=== PATIENT | female | born 1990 ===

== ENCOUNTER 2017-06-24 19:51 | Inpatient (IN) | payer OTHER ==
[2017-06-24 20:30] VITALS: BP 122/69; PULSE 79; TEMP 98
[2017-06-24 21:00] VITALS: BP 122/69; PULSE 79; TEMP 98
[2017-06-24 21:38] LABS: BASO % 0.3 % (0.0-2.0); EOS % 0.2 % (0-4.0); GRAN # 8.8 (1.4-6.5); LYMPH # 1.3 (1.2-3.4); LYMPH % 12.6 % (20.0-51.0); MEAN CELL VOLUME 70 fl (80.0-100.0); MEAN CORPUSCULAR HGB CONC 29 g/dl (33.0-37.0); MONO # 0.4 (0.1-0.6); MONO % 3.3 % (1.7-9.3); PLATELET COUNT 179 K/mm3 (130-400); RED BLOOD COUNT 4.32 M/mm3 (4.10-5.30); REDCELL DISTRIBUTION WIDTH-CV 16.8 % (11.5-14.5)
[2017-06-24 21:41] LABS: HEMATOCRIT 30.3 % (37.0-47.0); HEMOGLOBIN 8.8 g/dl (12.5-16.0); MEAN CORPUSCULAR HEMOGLOBIN 20 pg (27.0-31.0)
[2017-06-24 22:00] VITALS: BP 118/67; PULSE 64
[2017-06-24 22:21] LABS: HIV 1/2 Antibodies Non-Reactive; HIV-1p24 Antigen Non-Reactive
[2017-06-24 22:28] LABS: TRICYCLIC ANTIDEPRESS URINE NEGATIVE
[2017-06-24 22:30] VITALS: BP 124/80; BP 128/85; PULSE 63; PULSE 71
[2017-06-24 22:45] VITALS: BP 120/77; PULSE 74
[2017-06-24 23:30] VITALS: BP 125/78; PULSE 78
[2017-06-25] VITALS (21 sets, daily range): BP systolic 91–1333; BP diastolic 53–77; PULSE 55–90; TEMP 97.8–98.8
[2017-06-25 07:00] LABS: COLLECTION METHOD CLEAN CATCH
[2017-06-25 07:10] LABS: PH 7 (5-8); SQUAMOUS EPITHELIAL 0-2 /hpf; URINE APPEARANCE Hazy; URINE BACTERIA Occasional /hpf; URINE BILIRUBIN Negative (NEGATIVE); URINE BLOOD 3+ (NEGATIVE); URINE COLOR Yellow; URINE GLUCOSE Negative (NEGATIVE); URINE KETONE Negative (NEGATIVE); URINE LEUKOCYTE ESTERASE 3+ (NEGATIVE); URINE NITRATE Positive (NEGATIVE); URINE PROTEIN(semi-quant) Negative (NEGATIVE); URINE RBC 20-50 /hpf; URINE UROBILINOGEN Negative (NEGATIVE); URINE WBC >50 /hpf
[2017-06-25 16:21] LABS: HEPATITIS B SURFACE ANTIGEN Negative (())
[2017-06-26 00:30] VITALS: BP 111/62; PULSE 81; TEMP 98.4
[2017-06-26 01:32] LABS: RPR (VDRL) Non-reactive (())
[2017-06-26 06:33] VITALS: BP 110/60; PULSE 76; TEMP 97.8
[2017-06-26] MEDS ORDERED: PERCOCET 325 MG1 TA2 PO (08:33)
[2017-06-26] MEDS ORDERED: IBU600 MG PO (08:33)
[2017-06-26 16:05] VITALS: BP 110/58; PULSE 70; TEMP 97.8
[2017-06-26 22:15] VITALS: BP 108/61; PULSE 83; TEMP 98.6
[2017-06-27 07:05] VITALS: BP 103/61; PULSE 92; TEMP 97.9
== END 2017-06-27 12:00 | disposition home or self-care (01) | DRG 775 ==
LOC: LDRO 19:51 → LDR 23:22 → OB 06-25 15:00
PROVIDERS: Obstetrics & Gynecology
PROC: 10E0XZZ Delivery of Products of Conception, External Approach (ICD-10-PCS; principal; 2017-06-25)
PROC: 0HQ9XZZ Repair Perineum Skin, External Approach (ICD-10-PCS; 2017-06-25)
DX: O60.14X0 Preterm labor third trimester with preterm delivery third trimester, not applicable or unspecified (principal); O99.02 Anemia complicating childbirth; D64.9 Anemia, unspecified; Z3A.36 36 weeks gestation of pregnancy; Z37.0 Single live birth; O70.0 First degree perineal laceration during delivery
CPT/HCPCS: J2540; J2590; J7120